=== PATIENT | male | born 1940 | race Caucasian/White ===

== ENCOUNTER 2021-03-01 12:25 | Day surgery (SDC) | payer MEDICARE, OTHER ==
[2021-02-24 11:48] LABS: ALBUMIN 3.7 G/DL (3.4-5.0); ANION GAP 7 (8-16); BLOOD UREA NITROGEN 16 MG/DL (7-18); BUN/CREATININE RATIO 16.3 (5.4-32.0); CALCIUM 8.9 MG/DL (8.5-10.1); CHLORIDE 105 MMOL/L (99-107); CREATININE 0.98 MG/DL (0.60-1.10); GLUCOSE 99 MG/DL (70-104); POTASSIUM 3.8 MMOL/L (3.5-5.1); SODIUM 142 MMOL/L (135-145); TOTAL CARBON DIOXIDE 29.8 MMOL/L (24-32); eGFR 74 ML/MIN
[2021-02-24 11:51] LABS: PARTIAL THROMBOPLASTIN TIME 26 SECONDS (22-32)
[2021-02-24 12:01] LABS: BASOPHILS % (AUTO) 0.3 % (0-1); EOSINOPHILS # (AUTO) 0.1 X10'3 (0-0.9); EOSINOPHILS % (AUTO) 2.1 % (0-6); HEMATOCRIT 42.6 % (42.0-52.0); HEMOGLOBIN 14.4 g/dl (14.0-17.9); LYMPHOCYTES # (AUTO) 1.3 X10'3 (1.1-4.8); LYMPHOCYTES % (AUTO) 21.3 % (21-51); MEAN CORPUSCULAR HEMOGLOBIN 29.5 PG (27.0-31.0); MEAN CORPUSCULAR HGB CONC 33.9 g/dL (33.0-36.5); MEAN CORPUSCULAR VOLUME 87.2 FL (78-98); MEAN PLATELET VOLUME 8.8 FL (7.4-10.4); MONOCYTES # (AUTO) 0.8 X10'3 (0-0.9); MONOCYTES % (AUTO) 13.6 % (2-12); NEUTROPHILS # (AUTO) 3.7 X10'3 (1.8-7.7); NEUTROPHILS % (AUTO) 62.7 % (42-75); PLATELET COUNT 163 X10'3 (140-440); RED BLOOD COUNT 4.88 X10'6 (4.70-6.10); RED CELL DISTRIBUTION WIDTH 13.5 % (11.5-14.5)
[~2021-03-01] VITALS: Ht 185.4 cm; Wt 105.3 kg
[2021-03-01] VITALS (9 sets, daily range): BP systolic 97–152; BP diastolic 43–81
[~2021-03-01 12:25] MED LIST: ASPI-1264 PO; ATOR10TA PO; CHOL100046 PO; CLOP75TA34 PO; LORA10TA65 PO; MULT-1179 PO
[2021-03-01] MEDS ORDERED: normal saline 1,000 ML IV SCH (12:45)
[2021-03-01] MEDS ORDERED: LORazepam 0.5 MG tablet PO PRN (12:45)
[2021-03-01] MEDS ORDERED: diphenhydrAMINE 25mg capsule PO PRN (12:45)
[2021-03-01] MEDS ORDERED: CHOL20004 PO (13:01)
[2021-03-01] MEDS ORDERED: ATOR80TA PO (13:01)
[2021-03-01] MEDS ORDERED: ASPI-1071 PO (13:01)
[2021-03-01] MEDS ORDERED: NITR0.4T51 SL (13:01)
[2021-03-01] MEDS ORDERED: LIDOcaine 1% (10mg/ml)w/preservative injection 20ml MDV ONE (14:04)
[2021-03-01] MEDS ORDERED: midazolam 1 mg/ML 2ml injection ONE ×2 (14:04→15:01)
[2021-03-01] MEDS ORDERED: iohexol 350MG/ML 100ml bottle IV ONE ×2 (14:04→14:46)
[2021-03-01] MEDS ORDERED: fentaNYL/PF 50MCG/1 ML 2ML syringe ONE (14:04)
[2021-03-01] MEDS ORDERED: iohexol 350 MG/ML 50ML vial IV ONE ×3 (14:40→14:51)
[2021-03-01] MEDS ORDERED: heparin 1,000unit/ml 10ml vial 10 ML ONE (15:00)
[2021-03-01] MEDS ORDERED: ticagrelor 90mg tablet ONE (15:15)
[2021-03-01] MEDS ORDERED: OXAZEpam 15mg capsule PO PRN (16:20)
[2021-03-01] MEDS ORDERED: HYDROcodone/acetaminophen 5mg/325mg tablet PO PRN (16:20)
[2021-03-01] MEDS ORDERED: HYDROcodone/acetaminophen 10/325mg tab PO PRN (16:20)
[2021-03-01] MEDS ORDERED: proCHLORperazine 10 MG/2 ml inj IV PRN (16:20)
[2021-03-01] MEDS ORDERED: ondansetron/PF 4mg/2ml inj IV PRN (16:20)
[2021-03-01] MEDS ORDERED: clopidogrel 300mg tablet PO STA (16:48)
== END 2021-03-01 18:50 | disposition home or self-care (01) ==
LOC: SSTAY O 12:25
PROVIDERS: ATTEND Internal Medicine Interventional Cardiology
DX: R94.39 Abnormal result of other cardiovascular function study (principal); T82.855A Stenosis of coronary artery stent, initial encounter; I25.118 Atherosclerotic heart disease of native coronary artery with other forms of angina pectoris; J44.9 Chronic obstructive pulmonary disease, unspecified; E78.5 Hyperlipidemia, unspecified; Z85.46 Personal history of malignant neoplasm of prostate; Z85.07 Personal history of malignant neoplasm of pancreas; Z88.8 Allergy status to other drugs, medicaments and biological substances; Z79.82 Long term (current) use of aspirin; Z79.899 Other long term (current) drug therapy; Z95.1 Presence of aortocoronary bypass graft; Z87.891 Personal history of nicotine dependence; Y83.8 Other surgical procedures as the cause of abnormal reaction of the patient, or of later complication, without mention of misadventure at the time of the procedure; Y92.89 Other specified places as the place of occurrence of the external cause
CPT/HCPCS: 36415; 80048; 85025; 85610; 85730; 93005; 93459; 93567; 99152; 99153; C1725; C1751; C1760; C1769; C1874; C9600; J1644; J2001; J2250; J3010; J7030; Q0163; Q9967; A4620; A6258; J3490